=== PATIENT | female | born 1970 | race Native Hawaiian/Other Pacific Islander ===

== ENCOUNTER 2020-04-01 08:09 | Day surgery (SDC) | payer OTHER ==
[~2020-04-01] VITALS: Ht 30.5 cm; Wt 0.5 kg
== END 2020-04-01 09:55 | disposition home or self-care (01) ==
LOC: OR 08:09
PROC: 3E0T3TZ Introduction of Destructive Agent into Peripheral Nerves and Plexi, Percutaneous Approach (ICD-10-PCS; principal; 2020-04-01)
PROC: BR16YZZ Fluoroscopy of Lumbar Facet Joint(s) using Other Contrast (ICD-10-PCS; 2020-04-01)
DX: M47.817 Spondylosis without myelopathy or radiculopathy, lumbosacral region (principal)
CPT/HCPCS: J2001